=== PATIENT | female | born 1985 | race African-American/Black ===

== ENCOUNTER 2017-06-04 20:13 | Emergency (ER) | payer SELFPAY ==
[~2017-06-04] VITALS: Ht 160 cm; Wt 52.2 kg
[2017-06-04 21:17] VITALS: BP 119/83
== END 2017-06-04 22:47 | disposition home or self-care (01) ==
LOC: ER 20:21
DX: H10.32 Unspecified acute conjunctivitis, left eye (principal)
CPT/HCPCS: A4606; Z7610